=== PATIENT | male | born 1970 | race Caucasian/White ===

== ENCOUNTER 2017-01-25 12:23 | Inpatient (IN) ==
--- NOTE | 2017-01-25 14:31 | History & Physical Report ---
Date of Encounter: 01/25/17 Time of Encounter: 14:27 24 Hour HP Update - Instructions Instructions: If the History and Physical is less than 30 days old and was completed prior to A.M. admission and or procedure and has NOT been updated on calendar day of procedure please complete this update prior to performing procedure. - Update Patient reports changes in Medical Condition: No Changes in examination, assessment, or condition: No Changes in Medication: No Preop tests/diagnostics Reviewed: No - Attending Attestation Pt seen in the office by Dr. Patrick Araya on 01/07/17. Please use this as H&P. 46 year old male with symptomatic PAF--experiences chest pain, dyspnea, fatigue , and palpitations when in A-Fib. He has a PPM for bradycardia. Plan made in office was to start Sotalol 80mg BID, which is what he is being admitted for. Will require monitoring for 5 doses--daily EKGs to monitor QT/QTc as well. Check BMP, CBC. Obtain Baseline EKG. [id number] is 0, on ASA only. Echo 12/2014 EF 55%, no significant valvular dysfunction. Denies symptoms currently, SR on telemetry. I will discuss the above with Dr. Patrick Araya and make changes as necessary.
[2017-01-25 15:17] LABS: Basophils # 0.1 K/mcL (0.0-0.2); Basophils % 0.5 %; Eosinophils # 0.3 K/mcL (0.0-0.6); Eosinophils % 2.9 %; Hematocrit 40.9 % (37.5-50.1); Hemoglobin 13.4 g/dL (12.9-16.9); Immature Granulocytes % 0.3 % (0-4); Lymphocytes # 2.5 K/mcL (0.6-4.6); Lymphocytes % 26.8 %; Mean Corpuscular HGB Conc 32.8 g/dL (31.6-35.5); Mean Corpuscular Hemoglobin 28.3 pg (28.0-33.3); Mean Corpuscular Volume 86.3 fL (83.0-100.0); Mean Platelet Volume 10.6 fL (9.4-12.4); Monocytes % 10.4 %; Neutrophils # 5.4 K/mcL (1.6-8.9); Platelet Count 224 K/mcL (140-400); Red Blood Count 4.74 M/mcL (4.19-5.50); Red Cell Distribution Width 13.2 % (11.5-14.5); Segmented Neutrophils % 59.1 %
[2017-01-25 15:27] LABS: BUN/Creatinine Ratio 14 (6-26); Blood Urea Nitrogen 13 mg/dL (8-26); Calcium 9.1 mg/dL (8.6-10.8); Carbon Dioxide 24 mEq/L (19-29); Chloride 105 mEq/L (98-109); Glucose 87 mg/dL (70-99); Magnesium 1.8 mg/dL (1.6-2.6); Osmolality,Calculated 283 (280-300); Potassium 3.8 mEq/L (3.5-4.5); Sodium 137 mEq/L (136-145); eGFR For African Americans > 60 (> 60); eGFR For Non-African Americans > 60 (> 60)
[2017-01-25] MEDS: *HR* Heparin 5,000 UNIT/ML VIAL SQ SCH (17:47)
[2017-01-26] MEDS: *HR* Heparin 5,000 UNIT/ML VIAL SQ SCH ×2 (05:59→18:40)
--- NOTE | 2017-01-26 08:21 | Electrocardiograph Report ---
[address] [address] Test Date: 2017-01-26 Pat Name: Austin Khoury Department: 111 Room: [facility] Gender: M Equip Tech: RADHA : 1970 Requested By: Epifanio Gonzalez Order Number: [id number] Reading MD: Bhumika Araya Measurements Intervals [place] Rate: 59 P: 115 ID: [id number] QRS: 5 QRSD: 99 T: 23 QT: 409 QTc: 408 Interpretive Statements ELECTRONIC ATRIAL PACEMAKER ABNORMAL RHYTHM ECG Electronically Signed On 01-26-2017 8:19:57 EST by Bhumika Araya
--- NOTE | 2017-01-26 09:44 | Electrophysiology ProgressNote ---
Date of Encounter: 01/26/17 Time of Encounter: 09:42 Assessment and Plan (1) PAF (paroxysmal atrial fibrillation) Current Visit: Yes Status: Acute Admitted for Sotalol intitiation for symptomatic PAF. Sotalol 80mg BID s/p 2 doses. Currently maintaining SR. Baseline EKG 01/25/17 SR, rate 64, QT/QTc 408/418ms. EKG 01/26/17 s/p 2 doses SR, rate 59, QT/QTc 409/408ms. Needs monitored for 5 doses, 5th dose will be tomorrow at 1800. [id number] 0--ASA only. Echo EF preserved. Labs and vitals stable. Continue to follow. Possible D/C tomorrow evening after 5th dose. Discussion w patient/family: The assessment and plan as outlined above was discussed with the patient and/or family members who expressed understanding and agreement. All questions were answered. Thank you for involving us in the care of your patient. Please call with any questions. I will discuss all the above with Dr. Patrick Araya and make changes as necessary. Subjective Principal diagnosis: PAF Interval history: S/P 2 doses of Sotalol, appears to be maintaining SR. QT/QTc stable on EKG. Labs stable. Pt reports headache this AM. Objective Vital Signs, Last 4 Hours Temp Pulse Resp BP Pulse Ox 01/26/17 06:48 97.8 F 65 12 129/81 97 Vital Signs Temp Pulse Resp BP Pulse Ox 01/26/17 06:48 97.8 F 65 12 129/81 97 01/26/17 05:00 97.9 F 62 20 126/89 98 01/26/17 00:00 98 F 65 20 124/82 97 01/25/17 19:00 97.9 F 66 20 133/87 97 01/25/17 16:31 97.9 F 64 16 135/92 97 01/25/17 13:17 97.9 F 16 124/85 94 Intake and Output 01/25/17 01/26/17 01/26/17 23:59 07:59 15:59 Intake Total 0 / 0 120 / 120 480 / 480 Output Total 300 / 300 Balance -300 / -300 120 / 120 480 / 480 Intake: Oral 0 / 0 120 / 120 480 / 480 Output: Urine 300 / 300 Other: Meal Breakfast Percent of Meal Consumed 100% # Voids 1 Weight 90.7 kg Patient Weight 01/26/17 23:59 Weight 90.7 kg General: Conversant, No Apparent Distress HEENT: Atraumatic, Normocephaly, Mucus Membranes Moist Neck: No JVD, Normal carotid pulses Cardiac: Reg Rate and Rhythm, Normal S1 and S2, No Murmur Lungs: Normal Breath Sounds, No Wheeze, Rales, Rhonchi Neuro: Alert and responsive, No focal deficits noted Abdomen: Soft, Non-Tender Skin: No rashes noted on visualized skin Musculoskeletal: No Chest Wall Tenderness Extremities: No Clubbing, No Cyanosis, No Edema, Normal Pulses Results 01/25/17 14:43 01/25/17 14:43 Lab Results 01/25/17 01/25/17 14:43 14:43 WBC 9.2 Hgb 13.4 Hct 40.9 Plt Count 224 Sodium 137 Potassium 3.8 Chloride 105 Carbon Dioxide 24 BUN 13 Creatinine 0.90 Glucose 87 Calcium 9.1 Magnesium 1.8 Short CBC 01/25/17 Range/Units 14:43 WBC 9.2 (4.3-11.1) K/mcL Hgb 13.4 (12.9-16.9) g/dL Hct 40.9 (37.5-50.1) % Plt Count 224 (140-400) K/mcL Neutrophils # 5.4 (1.6-8.9) K/mcL BMP 01/25/17 Range/Units 14:43 Sodium 137 (136-145) mEq/L Potassium 3.8 (3.5-4.5) mEq/L Chloride 105 (98-109) mEq/L Carbon Dioxide 24 (19-29) mEq/L BUN 13 (8-26) mg/dL Creatinine 0.90 (0.72-1.25) mg/dL Glucose 87 (70-99) mg/dL Calcium 9.1 (8.6-10.8) mg/dL Active Medications Aspirin (Aspirin) 81 mg PO DAILY [facility] Stop: 07/28/17 09:01 Heparin Sodium (Porcine) (Heparin) 5,000 unit SQ Q12HCO [facility] Stop: 07/27/17 18:01 Last Admin: 01/26/17 05:59 Dose: 5,000 unit Omeprazole (Prilosec) 40 mg PO DAILY@0630 [facility] PRN Reason: Protocol Stop: 07/28/17 06:31 Last Admin: 01/26/17 05:59 Dose: 40 mg Oxycodone/Acetaminophen (Percocet 10/325) 1 each PO Q6HR PRN PRN Reason: Pain Stop: 07/27/17 14:36 Sotalol HCl (Betapace) 80 mg PO Q12HR DIAMANTE Stop: 07/27/17 18:01 Last Admin: 01/26/17 05:57 Dose: 80 mg - Imaging and Cardiology Echo: report reviewed - EKG Interpretation EKG results cardiology: personally reviewed, other (12 hr tele AVG HR 64, SR, no episodes of A-Fib noted.) Consult Discharge Plan - Plan Referrals: Amber Dowell, PERMASTONE APPLICATOR [Primary Care Provider] -
[2017-01-26] MEDS: *HR* OxyCODONE/APAP 10/325 TABLET PO PRN ×2 (10:17→18:38)
[2017-01-26] MEDS: Aspirin 81 MG TAB.CHEW PO SCH (10:18)
[2017-01-27] MEDS: *HR* Heparin 5,000 UNIT/ML VIAL SQ SCH ×2 (05:43→18:16)
[2017-01-27] MEDS ORDERED: Acetaminophen 325 MG TABLET PO PRN (09:32)
[2017-01-27] MEDS: *HR* OxyCODONE/APAP 10/325 TABLET PO PRN ×2 (09:40→20:03)
[2017-01-27] MEDS: Aspirin 81 MG TAB.CHEW PO SCH (09:40)
--- NOTE | 2017-01-27 11:00 | Electrophysiology ProgressNote ---
Date of Encounter: 01/27/17 Time of Encounter: 10:58 Assessment and Plan (1) PAF (paroxysmal atrial fibrillation) Current Visit: Yes Status: Acute Admitted for Sotalol intitiation for symptomatic PAF. Sotalol 80mg BID s/p 4 doses. Currently maintaining SR. Pt requested device interrogation yesterday to see if he was in A-Fib on . PAF confirmed on that date, no PAF since Tuesday on device check. Baseline EKG 01/25/17 SR, rate 64, QT/QTc 408/418ms. EKG 01/26/17 s/p 2 doses SR, rate 59, QT/QTc 409/408ms. EKG 01/27/17 s/p 3 doses SR, rate 60, QT/QTc 416/416ms. [id number] 0--ASA only. Echo EF preserved. Labs and vitals stable. Pt reports he has had a constant headache since starting Sotalol, described as "nagging" rated 4-5/10. PRN Tylenol given. Discussed with Dr. Patrick Araya. Since he is maintaining SR, recommend going home on Sotalol 80mg BID and wait a few days to see if headaches improve. If they persist or worsen, could decrease dose to 40mg BID as outpt. Discussed this plan with pt. He requests to stay overnight tonight so that symptoms can be re-evaluated tomorrow AM. Discussion w patient/family: The assessment and plan as outlined above was discussed with the patient and/or family members who expressed understanding and agreement. All questions were answered. Thank you for involving us in the care of your patient. Please call with any questions. I will discuss all the above with Dr. Patrick Araya and make changes as necessary. Subjective Principal diagnosis: PAF Interval history: S/P 4 doses of Sotalol, appears to be maintaining SR. QT/QTc stable on EKG. Pt now reports a constant, "nagging" headache 4-5/10 since starting Sotalol. Yesterday, reported right foot pain and "knot" and requested a foot xray, which was obtained and negative. Objective Vital Signs, Last 4 Hours Temp Pulse Resp BP Pulse Ox 01/27/17 07:46 98.3 F 61 20 119/85 92 Vital Signs Temp Pulse Resp BP Pulse Ox 01/27/17 07:46 98.3 F 61 20 119/85 92 01/27/17 05:00 98 F 65 15 111/76 95 01/26/17 20:00 97.8 F 60 16 118/92 97 01/26/17 15:26 98.1 F 62 12 139/100 95 01/26/17 11:04 97.7 F 69 12 132/93 96 01/26/17 11:00 100 Intake and Output 01/26/17 01/27/17 01/27/17 23:59 07:59 15:59 Intake Total 340 / 340 0 / 0 Output Total 0 / 0 Balance 340 / 340 0 / 0 Intake: Oral 340 / 340 0 / 0 Output: Urine 0 / 0 Other: Meal Dinner Percent of Meal Consumed 100% # Voids 2 Weight 90 kg Patient Weight 01/27/17 23:59 Weight 90 kg General: Conversant, No Apparent Distress HEENT: Atraumatic, Normocephaly, Mucus Membranes Moist Neck: No JVD, Normal carotid pulses Cardiac: Reg Rate and Rhythm, Normal S1 and S2, No Murmur Lungs: Normal Breath Sounds, No Wheeze, Rales, Rhonchi Neuro: Alert and responsive, No focal deficits noted Abdomen: Soft, Non-Tender Skin: No rashes noted on visualized skin Musculoskeletal: No Chest Wall Tenderness Extremities: No Clubbing, No Cyanosis, No Edema, Normal Pulses Results 01/25/17 14:43 01/25/17 14:43 Impressions Foot X-Ray 01/26/17 11:11 IMPRESSION: Unremarkable right foot. D/ / Kip Eagle / Kip Eagle Interpreting Provider: Kip Eagle Active Medications Acetaminophen (Tylenol) 650 mg PO Q6HR PRN PRN Reason: pain Stop: 07/29/17 09:33 Aspirin (Aspirin) 81 mg PO DAILY DIAMANTE Stop: 07/28/17 09:01 Last Admin: 01/27/17 09:40 Dose: 81 mg Heparin Sodium (Porcine) (Heparin) 5,000 unit SQ Q12HCO DIAMANTE Stop: 07/27/17 18:01 Last Admin: 01/27/17 05:43 Dose: 5,000 unit Omeprazole (Prilosec) 40 mg PO DAILY@0630 DIAMANTE PRN Reason: Protocol Stop: 07/28/17 06:31 Last Admin: 01/27/17 05:42 Dose: 40 mg Oxycodone/Acetaminophen (Percocet 10/325) 1 each PO Q6HR PRN PRN Reason: Pain Stop: 07/27/17 14:36 Last Admin: 01/27/17 09:40 Dose: 1 each Sotalol HCl (Betapace) 80 mg PO Q12HR DIAMANTE Stop: 07/27/17 18:01 Last Admin: 01/27/17 05:42 Dose: 80 mg - Imaging and Cardiology Echo: report reviewed - EKG Interpretation EKG results cardiology: personally reviewed, other (12 hr tele AVG HR 63, SR, paced) Consult Discharge Plan - Plan Referrals: mAber Dowell, [employer]PER[employer] [Primary Care Provider] -
[2017-01-28] MEDS: *HR* Heparin 5,000 UNIT/ML VIAL SQ SCH (06:08)
[2017-01-28] MEDS: *HR* OxyCODONE/APAP 10/325 TABLET PO PRN (08:40)
--- NOTE | 2017-01-28 08:52 | Electrophysiology ProgressNote ---
Date of Encounter: 01/28/17 Time of Encounter: 08:48 Assessment and Plan (1) Eye redness Current Visit: Yes Status: Acute C/o redness in his eye and having a film over his eye for a couple of minutes this morning. Symptoms resolved. I called Dr. Schultz with opthomology. He recommends continuing recommended anticoagulation and continue to monitor. We will order carotid US prior to discharge. He offered out-pt f/u later today or Tuesday. (2) PAF (paroxysmal atrial fibrillation) Current Visit: Yes Status: Acute Admitted for Sotalol intitiation for symptomatic PAF. Sotalol 80mg BID s/p 4 doses. Currently maintaining SR. Pt requested device interrogation yesterday to see if he was in A-Fib on . PAF confirmed on that date, no PAF since Tuesday on device check. Baseline EKG 01/25/17 SR, rate 64, QT/QTc 408/418ms. EKG 01/26/17 s/p 2 doses SR, rate 59, QT/QTc 409/408ms. EKG 01/27/17 s/p 3 doses SR, rate 60, QT/QTc 416/416ms. EKG 01/28/17 s/p 5 doses SR, HR 61 bpm, QT/QTc 407/409. [id number] 0--ASA only. Echo EF preserved. Labs and vitals stable. Pt reports he has had a constant headache since starting Sotalol, described as "nagging" rated 4-5/10. PRN Tylenol given. Discussed with Dr. Patrick Araya. Since he is maintaining SR, recommend going home on Sotalol 80mg BID and wait a few days to see if headaches improve. If they persist or worsen, could decrease dose to 40mg BID as outpt. Discussed this plan with pt. Discussion w patient/family: The assessment and plan as outlined above was discussed with the patient and/or family members who expressed understanding and agreement. All questions were answered. Thank you for involving us in the care of your patient. Please call with any questions. Subjective Principal diagnosis: PAF Interval history: Mr. Khoury c/o itiching around his right eye this morning and a flushing sensation followed by vision change feeling he had film over his eye for a couple of minutes. His noted that his eye became red. His symptoms resolved and redness went away quickly. He also continues to have a mild headache. States that he had severe headaches on metoprolol in the past and was changed to alternative medication and the headaches went away. Otherwise he denies chest willow or palpitations. Objective Vital Signs Temp Pulse Resp BP Pulse Ox 01/28/17 08:00 97.7 F 71 18 113/82 98 01/28/17 04:00 98 F 59 15 112/72 96 01/27/17 20:00 98.1 F 59 15 114/84 95 01/27/17 18:18 61 141/92 01/27/17 15:58 98.2 F 64 16 120/78 96 01/27/17 11:20 97.7 F 59 20 130/96 96 Intake and Output 01/27/17 01/28/17 01/28/17 23:59 07:59 15:59 Intake Total 240 / 240 300 / 300 Balance 240 / 240 300 / 300 Intake: Oral 240 / 240 300 / 300 Other: Meal Dinner Percent of Meal Consumed 90% # Voids 3 2 Weight 91.6 kg Patient Weight 01/28/17 23:59 Weight 91.6 kg General: Conversant, No Apparent Distress HEENT: Atraumatic, Normocephaly, Mucus Membranes Moist, Other (right eye with mild redness. ) Neck: No JVD, Normal carotid pulses Cardiac: Reg Rate and Rhythm, Normal S1 and S2, No Murmur Lungs: Normal Breath Sounds, No Wheeze, Rales, Rhonchi Neuro: Alert and responsive, No focal deficits noted Abdomen: Soft, Non-Tender Skin: No rashes noted on visualized skin Musculoskeletal: No Chest Wall Tenderness Extremities: No Clubbing, No Cyanosis, No Edema, Normal Pulses Results 01/25/17 14:43 01/25/17 14:43 - Imaging and Cardiology Echo: report reviewed - EKG Interpretation EKG results cardiology: personally reviewed Consult Discharge Plan - Plan Referrals: Amber Dowell CNP [Primary Care Provider] -
[2017-01-28 08:57] VITALS: BP 113/82
[2017-01-28] MEDS: Aspirin 81 MG TAB.CHEW PO SCH (09:57)
--- NOTE | 2017-01-28 10:59 | Discharge Summary ---
Date of Encounter: 01/28/17 Time of Encounter: 10:57 - Discharge Diagnosis (1) PAF (paroxysmal atrial fibrillation) Priority: Primary Status: Acute Comments: S/p sotalol initiation. CHADS VASc=0. On aspirin only. (2) Eye redness Priority: Primary Status: Acute Comments: Opthomology appt made for today after discharge. - Discharge Medications Prescriptions: Sotalol [Betapace] 80 mg PO Q12HR #60 tablet Home Medications: Omeprazole [PriLOSEC] 20 mg PO BID 05/13/15 [History] OxyCODONE/APAP 10/325 [Percocet 10/325 MG] 1 each PO Q6HR PRN #8 tablet [Rx] Aspirin [Lo-Dose Aspirin EC] 81 mg PO DAILY 01/25/17 [History] Sotalol [Betapace] 80 mg PO Q12HR #60 tablet 01/28/17 [Rx] Allergies/Adverse Reactions: 3 Allergy/AdvReac Type Severity Reaction Status Date / Time metronidazole [From Flagyl] AdvReac Cramping Verified 01/25/17 15:15 of the Muscles Procedures/tests Complete & Pending: Procedures Performed prior 72 hours Category Date Time Status ECG 12 lead ECG [ECG] Routine Y 01/25/17 17:49 Completed ECG 12 lead ECG [ECG] Routine Y 01/28/17 07:55 Completed EKG [ECG 12 lead ECG] [ECG] AM 0600 Y 01/26/17 06:00 Completed EKG [ECG 12 lead ECG] [ECG] AM 0600 Y 01/27/17 06:00 Completed EV carotid duplex imaging BI Routine Y 01/28/17 08:53 Ordered Date of admission: 01/25/17 12:23 Primary care physician: Amber Dowell CNP Consults: None Discharging clinician: Luis M Mccartney Anticipated date of discharge: 01/28/17 - Patient Status Disposition: Home, Self-Care Condition: Fair Overall status at discharge: patient is progressing back to baseline - Discharge Instructions Follow Up With: Amber Dowell CNP [Primary Care Provider] - Chance Schultz DO [Non-Partnered Physician] - (Today at 2:30 Address: [address] [place] [address], [id number]) - Diet and Activity Activity: increase activity as tolerated Diet: low fat, low cholesterol - Hospital Course Hospital course: Mr. Khoury is a 46 year old male admitted for Sotalol initiation for symptomatic PAF. Sotalol 80mg BID started and he received 5 doses while being monitored. Currently maintaining SR to atrial paced. Device interrogation completed to assess afib burden. He was in A-Fib on Thanksgiving and two days after. No recurrent afib seen. Baseline EKG 01/25/17 SR, rate 64, QT/QTc 408/418ms. EKG 01/26/17 s/p 2 doses SR, rate 59, QT/QTc 409/408ms. EKG 01/27/17 s/p 3 doses SR, rate 60, QT/QTc 416/416ms. EKG 01/28/17 s/p 5 doses SR, HR 61 bpm, QT/QTc 407/409. [id number] 0-- he is on ASA only. Pt reports he has had a constant mild headache since starting Sotalol, described as "nagging" rated 4-5/10. PRN Tylenol given with relief. Discussed with Dr. Patrick Araya. Since he is maintaining SR, recommend going home on Sotalol 80mg BID and wait a few days to see if headaches improve. If they persist or worsen, could decrease dose to 40mg BID as outpt. This morning he developed a itching and flushing sensation around his right eye. Nursing staff and reported his eye was blood shot and he felt as if a film was over his eye. Symptoms and redness quickly resolved. He reports similar symptoms two days ago. On exam only mild redness of right eye sclera noted. He denies vision changes. I did contact Dr. Schultz with opthamology who offered to see him today in his office after he is discharged. Carotid US will be completed prior to discharge for further evaluation. Close out-pt f/u will be schedule with Cardiology and PCP. - Time Spent with Patient Total time spent providing and/or coordinating discharge services: Greater than 30 minutes (1hr, d/c summary, f/u appt, med rec, d/c teaching.) Physical Examination Vital Signs, Last 4 Hours Temp Pulse Resp BP Pulse Ox 01/28/17 08:00 97.7 F 71 18 113/82 98 General: Conversant, No Apparent Distress HEENT: Atraumatic, Normocephaly, Mucus Membranes Moist, Other (right eye mildly red. ) Neck: No JVD, Normal carotid pulses Cardiac: Reg Rate and Rhythm, Normal S1 and S2, No Murmur Lungs: Normal Breath Sounds, No Wheeze, Rales, Rhonchi Neuro: Alert and responsive, No focal deficits noted Abdomen: Soft, Non-Tender Skin: No rashes noted on visualized skin Musculoskeletal: No Chest Wall Tenderness Extremities: No Clubbing, No Cyanosis, No Edema, Normal Pulses
--- NOTE | 2017-01-28 15:51 | Electrocardiograph Report ---
[address] [place], [place] [address] Test Date: 2017-01-25 Pat Name: Austin Khoury Department: 111 Room: [facility] Gender: M Service Station Cashier: TC : 1970 Requested By: Patrick Araya Order Number: [id number] Reading MD: Patrick Araya Measurements Intervals [place] Rate: 64 P: 63 RI: 129 QRS: 20 QRSD: 106 T: 56 QT: 408 QTc: 418 Interpretive Statements SINUS RHYTHM LATERAL T-WAVE ABNORMALITY Electronically Signed On 01-28-2017 15:50:26 EST by Patrick Araya
--- NOTE | 2017-01-28 16:44 | Electrocardiograph Report ---
[place] [address] Test Date: 2017-01-27 Pat Name: Austin Khoury Department: 111 Room: [facility] Gender: M Data Collection Interviewer: RADHA : 1970 Requested By: Epifanio Gonzalez Order Number: [id number] Reading MD: Wili Ho DO Measurements Intervals [place] Rate: 60 P: 38 SC: 164 QRS: 4 QRSD: 102 T: 20 QT: 416 QTc: 416 Interpretive Statements Electronic atrial pacemaker Electronically Signed On 01-28-2017 16:43:00 EST by Wili Ho DO
--- NOTE | 2017-01-28 17:41 | Electrocardiograph Report ---
[place] [address] Test Date: 2017-01-28 Pat Name: Austin Khoury Department: 111 Room: [facility] Gender: M Scaffold Worker: RAW : 1970 Requested By: Patrick Araya Order Number: [id number] Reading MD: Wili Ho DO Measurements Intervals [place] Rate: 61 P: 94 IA: 170 QRS: 4 QRSD: 100 T: 17 QT: 407 QTc: 409 Interpretive Statements ELECTRONIC ATRIAL PACEMAKER ABNORMAL RHYTHM ECG Electronically Signed On 01-28-2017 17:09:41 EST by Wili Ho DO
== END 2017-01-28 13:03 | disposition home or self-care (01) | DRG 201 ==
LOC: 2NENU 12:23
PROVIDERS: ADMIT Internal Medicine Clinical Cardiac Electrophysiology; ATTEND Internal Medicine Clinical Cardiac Electrophysiology

== ENCOUNTER 2018-01-10 09:00 | Inpatient (IN) ==
[2018-01-10] MEDS ORDERED: *HR* OxyCODONE/APAP 10/325 TABLET PO PRN (10:47)
--- NOTE | 2018-01-10 10:58 | History & Physical Report ---
Date of Encounter: 01/10/18 Time of Encounter: 10:53 24 Hour HP Update - Instructions Instructions: If the History and Physical is less than 30 days old and was completed prior to A.M. admission and or procedure and has NOT been updated on calendar day of procedure please complete this update prior to performing procedure. - Update Patient reports changes in Medical Condition: No Changes in examination, assessment, or condition: No Changes in Medication: No Preop tests/diagnostics Reviewed: Yes - Attending Attestation Please refer to eCW encounter with Dr. Patrick Araya 12/21/17 as H&P. Pt is a 47 year old male with hx of HTN, SSS s/p PPM, PAF that presents for Rythmol initiation. Previously on Sotalol, stopped 11/2017 due to side effects of fatigue, dyspnea and wheezing. Plan to initiate Rythmol 150mg [id number]. On exam, appears to be SR. Will obtain baseline ECG and daily ECGs to monitor QRS. Needs monitored for 5 doses. [id number] 1 (HTN). On ASA only. Will discuss and review with Dr. Patrick Araya. TTE 01/02/15 EF 55%.
[2018-01-10 11:44] LABS: Basophils % 0.2 %; Eosinophils # 0.1 K/mcL (0.0-0.6); Eosinophils % 0.9 %; Hematocrit 40.3 % (37.5-50.1); Hemoglobin 13.2 g/dL (12.9-16.9); Immature Granulocytes % 0.2 % (0-4); Lymphocytes % 17.1 %; Mean Corpuscular HGB Conc 32.8 g/dL (31.6-35.5); Mean Corpuscular Hemoglobin 28.6 pg (28.0-33.3); Mean Corpuscular Volume 87.4 fL (83.0-100.0); Mean Platelet Volume 11.1 fL (9.4-12.4); Monocytes # 0.8 K/mcL (0.0-1.3); Monocytes % 6.9 %; Neutrophils # 8.7 K/mcL (1.6-8.9); Platelet Count 162 K/mcL (140-400); Red Blood Count 4.61 M/mcL (4.19-5.50); Red Cell Distribution Width 13.4 % (11.5-14.5); Segmented Neutrophils % 74.7 %
[2018-01-10 11:46] LABS: Estimated Average Glucose 111 mg/dl; Hemoglobin A1C 5.5 %
[2018-01-10 12:05] LABS: BUN/Creatinine Ratio 13 (6-26); Blood Urea Nitrogen 11 mg/dL (6-20); Calcium 9.1 mg/dL (8.6-10.3); Carbon Dioxide 27 mEq/L (23-29); Chloride 104 mEq/L (98-107); Glucose 96 mg/dL (70-105); Osmolality,Calculated 285 (280-300); Potassium 4.2 mEq/L (3.5-5.1); Sodium 138 mEq/L (136-145); eGFR For Non-African Americans > 60 (> 60)
[2018-01-10] MEDS: *HR* OxyCODONE/APAP 5/325 TABLET PO SCH ×2 (15:16→15:18)
[2018-01-10] MEDS: *HR* OxyCODONE/APAP 5/325 TABLET PO PRN (22:14)
[2018-01-11] MEDS: *HR* OxyCODONE/APAP 5/325 TABLET PO PRN ×2 (07:18→12:25)
[2018-01-11] MEDS ORDERED: Aspirin Enteric Coated 81 MG Tablet PO SCH (09:00)
--- NOTE | 2018-01-11 10:55 | Electrophysiology ProgressNote ---
Date of Encounter: 01/11/18 Time of Encounter: 10:52 Assessment and Plan (1) PAF (paroxysmal atrial fibrillation) Current Visit: Yes Status: Acute Please refer to eCW encounter with Dr. Patrick Araya 12/21/17 as H&P. Hx of PAF that presents for Rythmol initiation. Previously on Sotalol, stopped 11/2017 due to side effects of fatigue, dyspnea and wheezing. Started Rythmol 150mg [id number]. S/P 3 doses, maintaining SR. Pt reports severe headache /10 that started after first Sotalol dose. Discussed and reviewed with Dr. Patrick Araya. Will continue Rythmol for now to see if headache improves. If no improvement, will consider stopping Rythmol. Also recom mend adding Cardizem CD 120mg daily. Pt agreeable. Daily ECGs to monitor QRS. Needs monitored for 5 doses. Baseline ECG 01/10/18 Atrial PPM, rate 60, QRS 94ms. ECG 01/11/18: Atrial PPM, rate 59, QRS 101ms. TTE 01/02/15 EF 55%. [id number] 1 (HTN). On ASA only. Discussion w patient/family: The assessment and plan as outlined above was discussed with the patient and/or family members who expressed understanding and agreement. All questions were answered. Thank you for involving us in the care of your patient. Please call with any questions. I will discuss all the above with Dr. Patrick Araya and make changes as necessary. Subjective Principal diagnosis: PAF Interval history: Reports significant headache today 08/07 that started after taking first Rythmol dose yesterday. S/P 3 doses. Maintaining SR. Objective Vital Signs Temp Pulse Resp BP Pulse Ox 01/11/18 06:34 98.4 F 68 20 141/98 96 01/11/18 03:17 97.7 F 76 16 155/82 97 01/10/18 23:51 98 F 109 15 133/81 95 01/10/18 19:01 97.6 F 69 17 133/88 98 01/10/18 16:56 99.6 F 62 20 153/90 97 Intake and Output 01/10/18 01/11/18 01/11/18 23:59 07:59 15:59 Intake Total 0 / 0 Output Total 0 / 0 Balance 0 / 0 Intake: Oral 0 / 0 Output: Urine 0 / 0 Other: Weight 88.621 kg Patient Weight 01/11/18 23:59 Weight 88.621 kg General: Conversant, No Apparent Distress HEENT: Atraumatic, Normocephaly, Mucus Membranes Moist Neck: No JVD, Normal carotid pulses Cardiac: Reg Rate and Rhythm, Normal S1 and S2, No Murmur Lungs: Normal Breath Sounds, No Wheeze, Rales, Rhonchi Neuro: Alert and responsive, No focal deficits noted Abdomen: Soft, Non-Tender Skin: No rashes noted on visualized skin Musculoskeletal: No Chest Wall Tenderness Extremities: No Clubbing, No Cyanosis, No Edema, Normal Pulses Results 01/10/18 11:11 01/10/18 11:11 Lab Results 01/10/18 01/10/18 11:11 11:11 WBC 11.7 H Hgb 13.2 Hct 40.3 Plt Count 162 Sodium 138 Potassium 4.2 Chloride 104 Carbon Dioxide 27 BUN 11 Creatinine 0.85 Glucose 96 Calcium 9.1 Magnesium 2.0 Short CBC 01/10/18 Range/Units 11:11 WBC 11.7 H (4.3-11.1) K/mcL Hgb 13.2 (12.9-16.9) g/dL Hct 40.3 (37.5-50.1) % Plt Count 162 (140-400) K/mcL Neutrophils # 8.7 (1.6-8.9) K/mcL BMP 01/10/18 Range/Units 11:11 Sodium 138 (136-145) mEq/L Potassium 4.2 (3.5-5.1) mEq/L Chloride 104 (98-107) mEq/L Carbon Dioxide 27 (23-29) mEq/L BUN 11 (6-20) mg/dL Creatinine 0.85 (0.70-1.30) mg/dL Glucose 96 (70-105) mg/dL Calcium 9.1 (8.6-10.3) mg/dL Active Medications Aspirin (Aspirin Ec) 81 mg PO DAILY [facility] Stop: 07/13/18 09:01 Last Admin: 01/11/18 07:18 Dose: 81 mg Omeprazole (Prilosec) 20 mg PO BIDAC [facility]; Protocol Stop: 07/12/18 16:31 Last Admin: 01/11/18 07:18 Dose: 20 mg Oxycodone/Acetaminophen (Percocet 5/325) 1 each PO BID PRN PRN Reason: Moderate Pain and headaches Stop: 07/12/18 21:51 Last Admin: 01/11/18 07:18 Dose: 1 each Propafenone HCl (Rhythmol) 150 mg PO Q8H DIAMANTE Stop: 07/12/18 15:01 Last Admin: 01/11/18 07:02 Dose: 150 mg - Imaging and Cardiology Echo: report reviewed - EKG Interpretation EKG results cardiology: personally reviewed, other (12 hr tele AVG HR 63, SR) - VTE Reasons for not Prescribing Prophylaxis: Treatment not Indicated - Low risk for VTE Consult Discharge Plan - Plan Referrals: Marat Stewart MD [Primary Care Provider] - 01/18/18 10:20 am (Please fo llow up as schedule...)
[2018-01-11] MEDS ORDERED: Acetaminophen 325 MG TABLET PO PRN (12:30)
[2018-01-11] MEDS: Diltiazem CD (24hr) 120 MG CAPSULE PO SCH (14:07)
[2018-01-11] MEDS: Ibuprofen 600 MG TABLET PO PRN (17:40)
[2018-01-12] MEDS: *HR* OxyCODONE/APAP 5/325 TABLET PO PRN (05:49)
[2018-01-12 07:49] VITALS: BP 143/84
[2018-01-12] MEDS ORDERED: Ondansetron ODT 4 MG TAB.RAPDIS PO PRN (08:05)
[2018-01-12] MEDS: Diltiazem CD (24hr) 120 MG CAPSULE PO SCH (08:44)
[2018-01-12] MEDS: Ibuprofen 600 MG TABLET PO PRN (08:45)
[2018-01-12] MEDS ORDERED: Aspirin Enteric Coated 81 MG Tablet PO SCH (09:00)
[2018-01-12] MEDS ORDERED: COLESTIPOL HCL 1 GM PO SCH (09:00)
[2018-01-12] MEDS ORDERED: NON-FORMULARY MEDICATION 1 EACH EACH (Losartan Potassium [Cozaar] 100 MG) PO SCH (09:00)
--- NOTE | 2018-01-12 09:24 | Discharge Summary ---
Date of Encounter: 01/12/18 Time of Encounter: 09:24 - Discharge Diagnosis (1) PAF (paroxysmal atrial fibrillation) Priority: Primary Status: Acute - Hospital Course Hospital course: Mr. Khoury is a 47 year old male with hx of PAF that presented 01/10/18 for Rythmol initiation. Previously on Sotalol, stopped 11/2017 due to side effects of fatigue, dyspnea and wheezing. Started Rythmol 150mg [id number]. S/P 6 doses, maintaining SR. Pt reports continued headache rated 6/10 that started after first Sotalol dose. Discussed and reviewed with Dr. Patrick Araya. Will continue Rythmol for now to see if headache improves. If no improvement, can stop Rythmol. Pt is agreeable to this plan, states he will try to continue Rythmol for at least 1 week. Added Cardizem CD 120mg daily. Decreased Losartan from 100mg to 50mg daily with addition of Cardizem. Daily ECGs show stable QRS.TTE 01/02/15 EF 55%. [id number] 1 (HTN). On ASA only. Please refer to eCW encounter with Dr. Patrick Araya 12/21/17 as H&P. Pt being d/c'd home in stable condition. Will coordinate outpt follow-up with Dr. Patrick Araya in 2-3 weeks. - Time Spent with Patient Total time spent providing and/or coordinating discharge services: Less than 30 minutes - Discharge Medications Prescriptions: Diltiazem CD (24hr) [Cardizem CD] 120 mg PO DAILY #30 cap.er.24h Losartan Potassium 50 mg PO DAILY #30 tablet Propafenone [Rhythmol] 150 mg PO Q8H #90 tablet Home Medications: Aspirin [Lo-Dose Aspirin EC] 81 mg PO DAILY 01/11/18 [History] Colestipol HCl [Colestid] 1 gm PO DAILY 01/11/18 [History] Dicyclomine Hcl [Bentyl] 20 mg PO DAILY 01/11/18 [History] Omeprazole [PriLOSEC] 40 mg PO DAILY 01/11/18 [History] Ondansetron HCl [Zofran] 4 mg PO Q8HR PRN 01/11/18 [History] Acetaminophen [Tylenol] 650 mg PO Q6HR PRN tablet 01/12/18 [Rx] Diltiazem CD (24hr) [Cardizem CD] 120 mg PO DAILY #30 cap.er.24h 01/12/18 [Rx] Ibuprofen [Motrin] 600 mg PO Q6HR PRN tablet 01/12/18 [Rx] Losartan Potassium 50 mg PO DAILY #30 tablet 01/12/18 [Rx] Propafenone [Rhythmol] 150 mg PO Q8H #90 tablet 01/12/18 [Rx] Allergies/Adverse Reactions: Allergy/AdvReac Type Severity Reaction Status Date / Time metronidazole [From Flagyl] AdvReac Cramping Verified 10/22/17 12:37 of the Muscles Date of admission: 01/10/18 09:23 Primary care physician: Marta Stewart MD Discharging clinician: Epifanio Gonzalez Anticipated date of discharge: 01/12/18 Physical Examination Vital Signs, Last 4 Hours Temp Pulse Resp BP Pulse Ox 01/12/18 07:48 98.4 F 57 17 143/84 96 Vital Signs Temp Pulse Resp BP Pulse Ox 01/12/18 07:48 98.4 F 57 17 143/84 96 01/12/18 00:26 97.9 F 66 17 105/81 96 01/11/18 20:39 98.2 F 60 17 121/79 96 01/11/18 15:18 97.8 F 67 20 145/97 97 01/11/18 14:09 76 143/95 Intake and Output 01/11/18 01/12/18 01/12/18 23:59 07:59 15:59 Intake Total 240 / 240 Balance 240 / 240 Intake: Oral 240 / 240 Other: Meal Breakfast Percent of Meal Consumed 25% General: Conversant, No Apparent Distress HEENT: Atraumatic, Normocephaly, Mucus Membranes Moist Neck: No JVD, Normal carotid pulses Cardiac: Reg Rate and Rhythm, Normal S1 and S2, No Murmur Lungs: Normal Breath Sounds, No Wheeze, Rales, Rhonchi Neuro: Alert and responsive, No focal deficits noted Abdomen: Soft, Non-Tender Skin: No rashes noted on visualized skin Musculoskeletal: No Chest Wall Tenderness Extremities: No Clubbing, No Cyanosis, No Edema, Normal Pulses - Patient Status Disposition: Home, Self-Care Condition: Fair Overall status at discharge: patient is back to baseline - Discharge Instructions Follow Up With: Marta Stewart MD [Primary Care Provider] - 01/18/18 10:20 am (Please follow up as schedule...) - Diet and Activity Activity: increase activity as tolerated Diet: low fat, low cholesterol - VTE Reasons for not Prescribing Prophylaxis: Treatment not Indicated - Low risk for VTE
== END 2018-01-12 10:02 | disposition home or self-care (01) | DRG 862 ==
LOC: 2ANU 09:23
PROVIDERS: ADMIT Internal Medicine Clinical Cardiac Electrophysiology; ATTEND Internal Medicine Clinical Cardiac Electrophysiology